=== PATIENT | female | born 1990 | race Caucasian/White ===

== ENCOUNTER 2022-05-16 09:30 | Outpatient (CLI) | payer OTHER ==
[2022-05-16 10:02] LABS: BHCG - Serum Negative (NEGATIVE); Pregs Control Background? CLEAR/WHITE (CLR/WHITE); Pregs Control Bar Appear? YES (CONTROL BAR)
== END 2022-05-16 09:31 | disposition home or self-care (01) ==
LOC: RAD 09:30
PROVIDERS: ATTEND Obstetrics & Gynecology
DX: Z32.00 Encounter for pregnancy test, result unknown (principal)
CPT/HCPCS: 36415; 84703

== ENCOUNTER 2022-12-01 09:40 | Outpatient (CLI) | payer BC ==
[2022-12-01 09:59] LABS: BHCG - Serum Negative (NEGATIVE); Pregs Control Background? CLEAR/WHITE (CLR/WHITE); Pregs Control Bar Appear? YES (CONTROL BAR)
[2022-12-01] MEDS ORDERED: Iopamidol 300 61% 100 ML VIAL FS ONE (10:07)
== END 2022-12-01 09:41 | disposition home or self-care (01) ==
LOC: RAD 09:40
DX: Z01.818 Encounter for other preprocedural examination (principal)
CPT/HCPCS: 58340; 74740; 84703; Q9967